=== PATIENT | male | born 1965 | race Caucasian/White ===

== ENCOUNTER 2022-07-27 21:06 | Emergency (ER) | payer OTHER, BC ==
[~2022-07-27] VITALS: Ht 185.4 cm; Wt 99.8 kg
[2022-07-27 21:19] VITALS: BP_SYST 144
--- NOTE | 2022-07-27 21:19 | NUR ---
Placed in room 04 . Placed on playground monitor, blood pressure machine and pulse oximeter. To gown for exam. Side rails up. Report given to BAO [place]
[2022-07-27] MEDS ORDERED: MORPHINE 4 MG INJ. 4 MG/ML VIAL IVP ONE ×2 (21:30→23:30)
[2022-07-27] MEDS ORDERED: NACL 0.9% 1,000 ML IV ONE ×2 (21:30→23:30)
[2022-07-27] MEDS ORDERED: ONDANSETRON HCL 4 MG/2 ML VIAL IVP ONE (21:30)
--- NOTE | 2022-07-27 21:37 | NUR ---
iv placed 20g left FA
[2022-07-27 21:49] LABS: BASOPHILS % (AUTO) 0.5 % (0.0-2.0); EOSINOPHILS # (AUTO) 0.1 K/uL (0.0-0.4); HEMATOCRIT 45.7 % (36-54); HEMOGLOBIN 15.8 g/dL (14.0-18.0); LYMPHOCYTES # (AUTO) 1.1 K/uL (1.0-5.5); LYMPHOCYTES % (AUTO) 12.6 % (20.5-51.5); MEAN CORPUSCULAR HEMOGLOBIN 31 pg (27-31); MEAN CORPUSCULAR HGB CONC 35 % (32-36); MEAN CORPUSCULAR VOLUME 90 fL (79.0-98.0); MONOCYTES # (AUTO) 0.6 K/uL (0.0-1.0); MONOCYTES % (AUTO) 6.5 % (1.7-9.3); NEUTROPHILS % (AUTO) 79.4 % (40.0-70.0); PLATELET COUNT (AUTO) 143 K/uL (130-430); RED BLOOD CELL COUNT(AUTO) 5.09 MIL/uL (4.2-6.2); RED CELL DISTRIBUTION WIDTH 13.9 % (9.0-15.0); WHITE BLOOD COUNT (AUTO) 8.8 K/uL (4.8-10.8)
[2022-07-27 21:59] LABS: PROTHROMBIN TIME 10.7 SECS (9.5-12.5)
[2022-07-27 22:02] LABS: CALCIUM 8.9 mg/dL (8.4-11.0); CREATININE 1.22 mg/dL (0.55-1.30)
[2022-07-27] MEDS ORDERED: KETOROLAC TROMETHAMINE 30 MG VIAL IVP ONE (22:15)
[2022-07-27] MEDS ORDERED: cefTRIAXone 1 GM IVPB PREMIX 50 ML IV ONE (23:15)
[2022-07-27] MEDS ORDERED: TAMSULOSIN HCL 0.4 MG CAP PO ONE (23:30)
[2022-07-28] MEDS ORDERED: CEPH-548 PO (01:33)
[2022-07-28] MEDS ORDERED: TAMS-11 PO (01:33)
[2022-07-28] MEDS ORDERED: OXYC-128 PO (01:33)
[2022-07-28] MEDS ORDERED: IBUP-1969 PO (01:33)
[2022-07-28] MEDS ORDERED: ACET-2634 PO (01:33)
[2022-07-28 01:41] VITALS: BP_SYST 127
== END 2022-07-28 01:40 | disposition home or self-care (01) ==
LOC: SED 21:06
DX: N20.0 Calculus of kidney (principal); R16.2 Hepatomegaly with splenomegaly, not elsewhere classified; I10 Essential (primary) hypertension; R10.31 Right lower quadrant pain; R35.0 Frequency of micturition; R11.0 Nausea; E11.9 Type 2 diabetes mellitus without complications; Z79.899 Other long term (current) drug therapy
CPT/HCPCS: 99285; 74176; 96365; 96375; 96361; 80053; 83690; 85025; 85610; 85730; 87040; 36415; 76376; 96376; 83605; J0696; J1885; J2405; J2270; J7030

== ENCOUNTER 2022-11-13 17:41 | Emergency (ER) | payer BC, OTHER ==
[~2022-11-13 17:41] MED LIST: ACET-2634 PO; CEPH-548 PO; IBUP-1969 PO; OXYC-128 PO; TAMS-11 PO
--- NOTE | 2022-11-13 18:15 | NUR ---
CALLED FOR TRIAGE, UNABLE TO LOCATE PT
--- NOTE | 2022-11-13 18:30 | NUR ---
CALLED FOR TRIAGE, UNABLE TO LOCATE PT.
--- NOTE | 2022-11-13 18:43 | NUR ---
PT NOT IN WAITING ROOM, PT LEFT WITHOUT BEING SEEN
== END 2022-11-13 18:43 | disposition left against medical advice (07) ==
LOC: SED 17:41
DX: S05.92XD Unspecified injury of left eye and orbit, subsequent encounter (principal); Z53.21 Procedure and treatment not carried out due to patient leaving prior to being seen by health care provider; X58.XXXD Exposure to other specified factors, subsequent encounter